=== PATIENT | male | born 1975 | race Caucasian/White ===

== ENCOUNTER 2018-01-03 00:23 | Emergency (ER) | payer MEDICAID ==
--- NOTE | 2018-01-03 02:01 | XRAY Report ---
Reason: pain Procedure Date: 01/03/2018 Accession Number: [id number] / [id number] Procedure: XR - Lumbar Spine 2 View CPT Code: FULL RESULT: EXAM: LUMBOSACRAL SPINE RADIOGRAPHY EXAM DATE: 01/03/2018 01:39 AM. CLINICAL HISTORY: Pain. COMPARISONS: None. TECHNIQUE: 2 views. FINDINGS: Alignment: Normal. No spondylolisthesis or scoliosis. Bones: Five [id number] lumbar vertebral bodies are present. No fractures or bone lesions. Disks: Mild degenerative disk disease. Facets: Moderate facet arthropathy. Sacroiliac Joints: Unremarkable. Soft Tissues: Normal. The visualized bowel gas pattern is normal. IMPRESSION: Mild degenerative changes. No evidence of fracture. [facility]
[2018-01-03] MEDS ORDERED: HYDROmorphone 1 MG/ML CARPUJECT IVP STA ×2 (02:57→07:22)
--- NOTE | 2018-01-03 03:02 | ED Physician Documentation ---
PD HPI BACK PAIN - Stated complaint Stated Complaint: LOW BACK PAIN - Chief complaint Chief Complaint: Back Pain - History obtained from History obtained from: Patient - History of Present Illness Timing - onset: Chronic Timing - duration: Months (2) Timing - details: Gradual onset, Still present, Intermittant Pain level max: 10 Pain level now: 10 Location: Mid, Lower Quality: Pain, Sharp, Similar to prior episodes Associated symptoms: Numbness, Incontinent of urine, Incontinent of stool. No: Fever, Weakness, Unable to urinate, Hematuria Improves with: Rest, Nothing Worsened by: Movement Contributing factors: No: Lifting, Twisting, Trauma, Anticoagulated, Cancer, IVDA, Out of meds Similar symptoms before: Work up / diagnostics Recently seen: Not recently seen - Additional information Additional information: 42-year-old male with history of PTSD denying any past medical or surgical history here with complaint of low back pain the past 2 months which had gotten worse in intensity of pain the past 3 days. Patient stated his mid low back pain (patient is pointing at the upper sacral area) started 5 years ago after a lumbar puncture in [place]. He stated he did not require any hospitalization after the LP. He moved to [place] 4 years ago and had an x-ray done and was informed it was normal. He then moved back again to [place]. He is now back in town and here complaining that his pain had gotten worse the past 2 months as there is intermittent incontinence of urine and stool and numbness of both of his legs and decreased in sexual function. His pain is so strong that is giving him hot flashes. Denies any trauma or twisting injury denies any fever Review of Systems Ten Systems: 10 systems reviewed and negative Constitutional: denies: Fever, Chills, Myalgias Cardiac: denies: Chest pain / pressure Respiratory: denies: Dyspnea GI: denies: Abdominal Pain, Nausea, Vomiting, Constipation, Diarrhea, Hematemesis, Bloody / black stool : reports: Incontinent. denies: Dysuria, Unable to Void Skin: denies: Rash Musculoskeletal: reports: Back pain, Pain with weight bearing. denies: Neck pain, Extremity pain, Joint pain, Extremity swelling Neurologic: reports: Numbness. denies: Generalized weakness, Focal weakness, Head injury PD PAST MEDICAL HISTORY - Past Medical History : Incontinence Psych: Depression, Post traumatic stress disorder Musculoskeletal: Chronic back pain - Past Surgical History General: Hiatal hernia repair - Present Medications Home Medications: Ambulatory Orders Medication Instructions Recorded Confirmed Acetaminophen [Tylenol Extra 2 tab 01/03/18 Strength] Ibuprofen [Motrin] 800 mg 01/03/18 - Allergies Allergies/Adverse Reactions: Allergies Allergy/AdvReac Type Severity Reaction Status Date / Time No Known Drug Allergies Allergy Verified 01/03/18 00:36 - Social History Does the pt smoke?: Yes Smoking Status: Current every day smoker Does the pt drink ETOH?: No - Immunizations Immunizations are current?: Yes - POLST Patient has POLST: No PD ED PE NORMAL - Vitals Vital signs reviewed: Yes - General General: Alert and oriented X 3, No acute distress, Well developed/nourished - HEENT HEENT: Moist mucous membranes, Pharynx benign - Neck Neck: Supple, no meningeal sign, No bony TTP - Cardiac Cardiac: RRR, No murmur - Respiratory Respiratory: No respiratory distress, Clear bilaterally - Abdomen Abdomen: Normal bowel sounds, Soft, Non tender, Non distended, No organomegaly, Other (No palpable mass) - Male Male : Junior Qa Analyst present (Patient's nurse) - Rectal Rectal: Other (Rectal exam: Normal rectal sphincter tone. Nontender. No palpable mass. Brownish mucoid stool. Guaiac negative.) - Back Back: No CVA TTP, No spinal TTP, Other (Patient seems uncomfortable when he was asked to side bend and bend forward and backwards. 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, No motor deficit, No sensory deficit, Normal speech - Psych Psych: Normal mood, Normal affect Results - Vitals Vitals: Vital Signs - 24 hr 01/03/18 01/03/18 00:33 02:32 Temperature 36.8 C Heart Rate 92 84 Respiratory 19 16 Rate Blood Pressure 136/91 H 116/82 H O2 Saturation 97 97 Oxygen O2 Source Room air PD MEDICAL DECISION MAKING - ED course Complexity details: reviewed results, re-evaluated patient, considered differential (Degenerative joint disease, chronic pain, lumbar strain, cauda equina syndrome), d/w patient, d/w field service consultant ED course: spoke to the [facility] transfer center named Renny. Case discussed and she relayed them to the neurosurgeon Dr Marino who is currently doing a procedure. After much discussion and answering their questions the neurosurgeon stated patient needs an MRI and can be transferred to their hospital. However I need to talk to their emergency room physician. 0206 spoke to the emergency room attending Dr. Bernal. Case discussed including acceptance of transfer by the neurosurgeon. For an MRI. He wants a post residual urine to be done. Patient was informed about the acceptance of his transfer to [facility] for an MRI.He agreed to a rectal exam and post residual urine per bladder scan. 50 patient's nurse informed me that patient urinated 225 cc of clear urine and post void residual via bladder scan was 23 mL. Patient had requested for pain medication. Will order [id number] 44 patient states decreased pain with Dilaudid. Transfer forms filled. Departure - Departure Disposition: 02 Transfer Acute Care Hosp Clinical Impression: Back pain Qualifiers: Back pain location: low back pain Chronicity: unspecified Back pain laterality: midline Sciatica presence: without sciatica Qualified Code(s): M54.5 - Low back pain Condition: Stable
[2018-01-03 03:18] LABS: BILIRUBIN,URINE NEGATIVE (NEGATIVE); GLUCOSE, URINE (UA) NEGATIVE (NEGATIVE); KETONES,URINE (UA) NEGATIVE (NEGATIVE); LEUKOCYTE ESTERASE, URINE NEGATIVE (NEGATIVE); NITRITE,URINE NEGATIVE (NEGATIVE); OCCULT BLOOD,URINE NEGATIVE (NEGATIVE); PH,URINE 6.5 PH (5.0-7.5); PROTEIN,URINE NEGATIVE (NEGATIVE); UROBILINOGEN,URINE 0.2 (NORMAL) E.U./dL (NORMAL)
[2018-01-03 04:07] LABS: CALCIUM 8.8 mg/dL (8.5-10.3); CREATININE 1.1 mg/dL (0.6-1.2)
[2018-01-03 04:09] LABS: BASOPHILS % (AUTO) 0.2 %; EOSINOPHILS # (AUTO) 0.2 10^3/uL (0.0-0.7); EOSINOPHILS % (AUTO) 1.9 %; HGB - HEMOGLOBIN 13.6 g/dL (14.0-18.0); LYMPHOCYTES # (AUTO) 3.9 10^3/uL (1.5-3.5); LYMPHOCYTES % (AUTO) 33.4 %; MEAN CORPUSCULAR HEMOGLOBIN 27.8 pg (27.0-31.0); MEAN CORPUSCULAR HGB CONC 32.6 g/dL (32.0-36.0); MEAN CORPUSCULAR VOLUME 85.4 fL (80.0-94.0); MEAN PLATELET VOLUME 8.6 fL (7.4-11.4); MONOCYTES # (AUTO) 0.6 10^3/uL (0.0-1.0); MONOCYTES % (AUTO) 4.9 %; NEUTROPHILS % (AUTO) 59.6 %; PLT - PLATELET COUNT 325 10^3/uL (130-450); RED BLOOD COUNT 4.88 10^6/uL (4.70-6.10); RED CELL DISTRIBUTION WIDTH 13.1 % (12.0-15.0); WHITE BLOOD COUNT 11.7 x10^3/uL (4.8-10.8)
[2018-01-03 04:17] LABS: CLARITY,URINE CLEAR (CLEAR)
[2018-01-03 04:29] LABS: PLATELET ESTIMATE, MANUAL NORMAL (130-450,000) (NORMAL); PLATELET MORPHOLOGY 1+ GIANT PLATELETS (NORMAL)
[2018-01-03 06:34] VITALS: BP 112/68
--- NOTE | 2018-01-03 07:46 | ED Physician Documentation ---
History of Present Illness - Stated complaint Stated Complaint: LOW BACK PAIN - Chief complaint Chief Complaint: Back Pain PD PAST MEDICAL HISTORY - Past Medical History : Incontinence Psych: Depression, Post traumatic stress disorder Musculoskeletal: Chronic back pain - Past Surgical History General: Hiatal hernia repair - Present Medications Home Medications: Ambulatory Orders Medication Instructions Recorded Confirmed Acetaminophen [Tylenol Extra 2 tab 01/03/18 Strength] Ibuprofen [Motrin] 800 mg 01/03/18 - Allergies Allergies/Adverse Reactions: Allergies Allergy/AdvReac Type Severity Reaction Status Date / Time No Known Drug Allergies Allergy Verified 01/03/18 00:36 - Social History Does the pt smoke?: Yes Smoking Status: Current every day smoker Does the pt drink ETOH?: No - Immunizations Immunizations are current?: Yes - POLST Patient has POLST: No Results - Vitals Vitals: Vital Signs - 24 hr 01/03/18 01/03/18 01/03/18 00:33 02:32 03:45 Temperature 36.8 C Heart Rate 92 84 66 Respiratory 19 16 18 Rate Blood Pressure 136/91 H 116/82 H 102/70 O2 Saturation 97 97 97 01/03/18 01/03/18 01/03/18 04:00 05:22 06:31 Temperature Heart Rate 60 59 L 70 Respiratory 16 16 18 Rate Blood Pressure 106/77 99/69 112/68 O2 Saturation 95 96 97 Oxygen O2 Source Room air - Labs Labs: Laboratory Tests 01/03/18 01/03/18 01/03/18 02:15 03:30 03:30 WBC 11.7 H RBC 4.88 Hgb 13.6 L Hct 41.6 L MCV 85.4 MCH 27.8 MCHC 32.6 RDW 13.1 Plt Count 325 MPV 8.6 Neut # (Auto) 7.0 H Lymph # (Auto) 3.9 H Johnston # (Auto) 0.6 Eos # (Auto) 0.2 Baso # (Auto) 0.0 Absolute Nucleated RBC 0.01 Nucleated RBC % 0.1 Platelet Estimate NORMAL (130-450,000) Platelet Morphology 1+ GIANT PLATELETS Sodium 139 Potassium 3.9 Chloride 105 Carbon Dioxide 25 Anion Gap 9.0 BUN 22 H Creatinine 1.1 Estimated GFR (MDRD) 73 L Glucose 95 Calcium 8.8 Urine Color YELLOW Urine Clarity CLEAR Urine pH 6.5 Ur Specific [place] 1.020 Urine Protein NEGATIVE Urine Glucose (UA) NEGATIVE Urine Ketones NEGATIVE Urine Occult Blood NEGATIVE Urine Nitrite NEGATIVE Urine Bilirubin NEGATIVE Urine Urobilinogen 0.2 (NORMAL) Ur Leukocyte Esterase NEGATIVE Ur Microscopic Review NOT INDICATED Urine Culture Comments NOT INDICATED PD MEDICAL DECISION MAKING - ED course ED course: assumed care 7 AM 42 male chronic back pain inc pain last 2 months and letitia last 3 days to ER with increasing pain, incont nl neuro exam including sphincter tone posy void residual was 23 cc no IVDA no fever pending transfer to [facility] for MRI due to numerous pt in ED I did not get to eval pt prior to EMS arriving to transfer him no acute events reported by nursing Departure - Departure Disposition: 02 Transfer Acute Care Hosp Clinical Impression: Back pain Qualifiers: Back pain location: low back pain Chronicity: unspecified Back pain laterality: midline Sciatica presence: without sciatica Qualified Code(s): M54.5 - Low back pain Condition: Stable
== END 2018-01-03 09:08 | disposition short-term general hospital (02) ==
LOC: ED 00:23
DX: M54.5 Low back pain (principal); G89.29 Other chronic pain; F17.200 Nicotine dependence, unspecified, uncomplicated
CPT/HCPCS: 36415; 51798; 72100; 80048; 81003; 85025; 96374; 96376; 99285; J1170; 81001; 87086; 99284

== ENCOUNTER 2018-04-01 20:48 | Emergency (ER) | payer MEDICAID ==
--- NOTE | 2018-04-01 21:30 | ED Physician Documentation ---
History of Present Illness - Stated complaint Stated Complaint: RT ARM PX - Chief complaint Chief Complaint: Ext Problem - History obtained from History obtained from: Patient - History of Present Illness Timing: How many weeks ago (1) Pain level now: 3 Improved by: rest Worsened by: movement - Additonal information Additional information: c/o atraumatic right elbow pain, gradual onset 1 week ago and steadily worsening. pain is most pronounced at lateral aspect, radiates to proximal forearm. pain is worse with movement. inadequate pain relief with tylenol, ibuprofen at home Review of Systems Constitutional: denies: Fever, Chills, Sweats Skin: denies: Rash Musculoskeletal: reports: Joint pain. denies: Neck pain, Back pain, Extremity swelling, Joint swelling Neurologic: denies: Focal weakness, Numbness PD PAST MEDICAL HISTORY - Past Medical History : Incontinence Psych: Depression, Post traumatic stress disorder Musculoskeletal: Chronic back pain - Past Surgical History General: Hiatal hernia repair - Present Medications Home Medications: Ambulatory Orders Medication Instructions Recorded Confirmed Acetaminophen [Tylenol Extra 2 tab 01/03/18 Strength] Ibuprofen [Motrin] 800 mg 01/03/18 Tramadol HCl 50 - 100 mg PO Q6HR PRN #20 tablet 04/01/18 - Allergies Allergies/Adverse Reactions: Allergies Allergy/AdvReac Type Severity Reaction Status Date / Time No Known Drug Allergies Allergy Verified 04/01/18 21:07 - Social History Does the pt smoke?: Yes Smoking Status: Current every day smoker Does the pt drink ETOH?: No - Immunizations Immunizations are current?: Yes - POLST Patient has POLST: No PD ED PE NORMAL - Vitals Vital signs reviewed: Yes - General General: Alert and oriented X 3, No acute distress (NAD at rest, appears to have painful distress with ROM at right elbow), Well developed/nourished - Derm Derm: Normal color, Warm and dry, No rash - Extremities Extremities: No deformity, No tenderness to palpate, No edema - Neuro Neuro: No motor deficit, No sensory deficit PD ED PE EXPANDED - Extremities Extremities: Limited ROM (unable to fully supinate right elbow due to pain), Right elbow. No: Swelling, Joint effusion, Red warm joint Results - Vitals Vitals: Vital Signs - 24 hr 04/01/18 04/01/18 21:03 23:29 Temperature 36.7 C 36.3 C L Heart Rate 88 90 Respiratory 18 17 Rate Blood Pressure 138/94 H 132/93 H O2 Saturation 95 99 Oxygen O2 Source Room air - Rads (name of study) right elbow xray Radiology: Prelim report reviewed, See rad report PD MEDICAL DECISION MAKING - ED course Complexity details: reviewed results, re-evaluated patient, considered differential, d/w patient Departure - Departure Disposition: 01 Home, Self Care Clinical Impression: Elbow pain, right Condition: Good Instructions: ED Joint Pain, ED Epicondylitis Lateral Elbow Prescriptions: Tramadol HCl 50 - 100 mg PO Q6HR PRN #20 tablet PRN Reason: Pain Discharge Date/Time: 04/01/18 23:30
[2018-04-01] MEDS ORDERED: KETOROLAC 60 MG/2 ML VIAL IM STA (21:49)
--- NOTE | 2018-04-01 22:24 | XRAY Report ---
Reason: pain, swelling Procedure Date: 04/01/2018 Accession Number: [id number] / [id number] Procedure: XR - Elbow 3 View RT CPT Code: FULL RESULT: EXAM: RIGHT ELBOW RADIOGRAPHY EXAM DATE: 04/01/2018 10:04 PM. CLINICAL HISTORY: Pain, swelling. COMPARISON: None. TECHNIQUE: 3 views. FINDINGS: Bones: Normal. No fractures or bone lesions. Joints: Normal. No effusion. No subluxation. Soft Tissues: Unremarkable. IMPRESSION: Normal elbow radiography. [facility]
[2018-04-01] MEDS ORDERED: oxyCODONE/ACET 5/325 Prepack 4 PO STA (23:08)
[2018-04-01 23:30] VITALS: BP 132/93
== END 2018-04-01 23:30 | disposition home or self-care (01) ==
LOC: ED 20:48
DX: M25.521 Pain in right elbow (principal); F17.200 Nicotine dependence, unspecified, uncomplicated
CPT/HCPCS: 96372; 99283